=== PATIENT | female | born 1975 | race Caucasian/White ===

== ENCOUNTER → 2020-12-20 | Outpatient (CLI) | payer MEDICAID, OTHER ==
--- NOTE | 2020-12-20 11:58 | Diagnostic Imaging Report ---
Indication: Low back pain. Time of exam: 11:09 AM Frontal and lateral views of the lumbar spine were obtained. Curvature and alignment is normal. Vertebral body heights and disc spaces are well-maintained. No fracture or subluxation is identified. Impression: No acute abnormality is detected. Dictated by: Dictated on workstation # [id number]
== END ==
LOC: RAD FS 11:00
PROVIDERS: ATTEND Nurse Practitioner Family
DX: M54.5 Low back pain (principal)
CPT/HCPCS: 72100

== ENCOUNTER → 2022-10-19 | Outpatient (CLI) | payer MEDICAID ==
--- NOTE | 2022-10-19 16:53 | Diagnostic Imaging Report ---
INDICATION: Back pain AP and lateral views of the lumbar spine obtained. The lumbar vertebrae are normal in height and alignment. There is no fracture or subluxation. Disc spaces are normal height. There is mild facet degenerative change at L4-L5 and L5-S1. IMPRESSION: Mild facet degenerative changes in lower lumbar spine with no acute bone abnormality. Dictated by: Dictated on workstation # [id number]
== END ==
LOC: RAD FS 16:27
PROVIDERS: ATTEND Family Medicine
DX: M47.816 Spondylosis without myelopathy or radiculopathy, lumbar region (principal)
CPT/HCPCS: 72100